=== PATIENT | female | born 1960 | race American Indian/Alaskan Native ===

== ENCOUNTER 2020-09-30 10:13 | Outpatient (CLI) | payer BC ==
--- NOTE | 2020-09-30 11:42 | Cat Scan Report ---
CT ABDOMEN AND PELVIS WITHOUT CONTRAST INDICATION: UTI CONTRAST: Without IV COMPARISON: Abdominal ultrasound 03/31/[address] scans at this location are performed using CT dose reduction for ALARA by means of automated e xposure control. FINDINGS: Lung bases are clear. Small probable hepatic cysts are seen. Gallbladder and bile ducts ada ear within normal limits. Colonic diverticulosis is seen without evidence of diverticulitis. No evide nce of bowel obstruction is seen. Appendix appears within normal limits. No lymphadenopathy is seen. No free fluid is noted. No inflammatory changes are seen. No other masses are noted. No definite urin maury tract calculi are seen. No urinary obstructive changes are noted. Urinary bladder appears within normal limits. There probably is a fundal uterine leiomyoma. IMPRESSION: No acute abnormalities are seen Signer Name: Carter Guerra MD Signed: 09/30/2020 11:38 AM Workstation Name: [id number]
== END 2020-09-30 10:14 | disposition home or self-care (01) ==
LOC: CT 10:13
PROVIDERS: ATTEND Urology
DX: K57.30 Diverticulosis of large intestine without perforation or abscess without bleeding (principal); K76.89 Other specified diseases of liver; N39.0 Urinary tract infection, site not specified; D25.9 Leiomyoma of uterus, unspecified
CPT/HCPCS: 74176